=== PATIENT | female | born 1970 | race Caucasian/White ===

== ENCOUNTER 2017-08-16 07:04 | Day surgery (SDC) | END 2017-08-16 12:48 | disposition home or self-care (01) ==

== ENCOUNTER 2017-08-20 09:39 | Emergency (ER) | END 2017-08-20 14:32 | disposition home or self-care (01) ==

== ENCOUNTER 2017-08-27 09:10 | Emergency (ER) | END 2017-08-27 10:52 | disposition home or self-care (01) ==